=== PATIENT | male | born 1970 | race Caucasian/White ===

== ENCOUNTER 2016-11-25 17:35 | Emergency (ER) | payer OTHER ==
[~2016-11-25] VITALS: Ht 177.8 cm; Wt 88.5 kg
[2016-11-25 17:43] VITALS: BP 126/86
== END 2016-11-25 18:50 | disposition admitted as inpatient to this hospital (09) ==
LOC: ERH 17:35
DX: R07.9 Chest pain, unspecified (principal)
CPT/HCPCS: 80307; 93005; 93010; 99281

== ENCOUNTER 2017-01-04 12:29 | Emergency (ER) | payer OTHER ==
[~2017-01-04] VITALS: Ht 177.8 cm; Wt 88.5 kg
--- NOTE | 2017-01-04 15:52 | ED UPPER/LOWER EXTREMITY COMPL ---
History of Present Illness General Chief Complaint: Animal/Insect Bite Stated Complaint: DOG BITE Source: patient Exam Limitations: no limitations Vital Signs & Intake/Output Vital Signs & Intake/Output Vital Signs Date Time Temp Pulse Resp B/P Pulse O2 O2 Flow FiO2 Ox Delivery Rate 01/04 1846 97.8 75 18 116/72 98 Room Air 01/04 1621 98.7 82 18 112/71 97 Room Air 01/04 1237 98.5 93 20 142/96 98 Room Air Allergies Coded Allergies: levofloxacin (From [facility]) (HANDS AND FACE GOT VERY RED 01/04/17) Reconcile Medications Clindamycin HCl (Cleocin HCl) 300 MG CAPSULE 1 CAP PO TID CELLULITIS Clonazepam (Klonopin) 2 MG TABLET 1 TAB PO PRN ANXIETY (Reported) Naproxen (Naprosyn) 500 MG TABLET 1 TAB PO BID PRN PAIN/INFLAMMATION Tylenol With Codeine (Tylenol With Codeine #3 Tablet) 300 MG-30 MG TABLET 1 TAB PO PRN PAIN (Reported) Triage Note: PT TO ED C/O DOG BITE TO RIGHT HAND. PT STATES DOG IS UP TO DATE ON SHOTS, WAS A FRIENDS DOG. SUSTAINED BITE LAST NIGHT. RIGHT HAND PINK, WARM TO TOUCH AND BITES ARE OOZING. PT UNSURE OF LAST TETANUS SHOT. Triage Nurses Notes Reviewed? yes Onset: Gradual Duration: day(s): (1) Timing: no prior history Severity: moderate Severity Numbers: 8 Pain/Injury Location: Right: Hand. Method of Injury: dog bite Modifying Factors: Improves With: immobilization. Worsens With: movement. HPI: Patient is a 46-year-old male presenting to the emergency Department chief complaint of dog bite to the right hand that happened last night around 10 PM. He noticed increasing pain, swelling and redness today so decided to come in for evaluation. Tactile fevers and chills. Denies any nausea vomiting. Dog is up- to-date with immunizations. Patient unsure of tetanus immunization. Has been taking Tylenol with minimal relief. Movement makes it worse. Denies numbness or tingling. (MARY PAN,SONAM) Past History Travel History Traveled to [place] past 21 day No Medical History Any Pertinent Medical History? see below for history Cardiovascular: hypertension Endocrine: BORDERLINE DM Surgical History Surgical History: non-contributory Psychosocial History What is your primary language Syriac Tobacco Use: Current Daily Use Daily Tobacco Use Amount/Type: => 5 Cigarettes daily ETOH Use: occasional use Illicit Drug Use: denies illicit drug use Family History Hx Contributory? No (SONAM AMBRIZ) Review of Systems Review of Systems Constitutional: Reports: chills, fever. Comments Review of systems: See HPI, All other systems negative. Constitutional, no weight loss HEENT: No visual changes no sore throat no congestion Cardiovascular: No chest pain ,palpitation Skin, no jaundice no rashes Respiratory: No dyspnea cough sputum or hemoptysis GI: No nausea no vomiting Muscle skeletal: no back pain, no neck pain, Neurologic: No numbness no confusion Psych: No stress anxiety or depression,. Heme/endocrine: No bruising no bleeding no polyuria or polydipsia Immunology: No splenectomy or history of AIDS (SONAM AMBRIZ) Physical Exam Physical Exam General Appearance: well developed/nourished, no apparent distress, alert, awake , comfortable Comments: Well-developed well-nourished person in no acute distress HEENT:Pupils equally round and reactive to light and accommodation. Nose is atraumatic. Neck :normal inspection Back: Nontender Cardiovascular: Regular rate and rhythms no murmurs rubs or gallops, normal JVP Respiratory: Chest nontender. No respiratory distress.breath sounds clear to auscultation bilaterally Extremity: Moderate edema noted of the dorsum of the right hand and right wrist area. Limited range of motion of the right hand secondary to pain and swelling. Radial pulses are 2+ bilaterally. Neuro: Alert oriented x3, motor sensory normal, Skin: Very warm to palpation on the dorsum of the right hand, several puncture wounds noted on the dorsum of the right hand with surrounding erythema. Moderate edema. Area of erythema is approximately 8-10 cm extending from the dorsum of the right hand up past the wrist. Psych: Mood and affect is normal, memory and judgment is normal. (SONAM AMBRIZ) Progress Differential Diagnosis: cellulitis, contusion, dislocation, sprain, tendon injury, osteoarthritis, necrotizing fasciitis Plan of Care: Orders Procedure Date/time Status Regular Diet 01/[address] in observation 01/04 1727 Active Vital Signs 01/04 1727 Active Code Status 01/04 172 Active BLOOD CULTURE 01/04 1550 Active WESTERGREN SED RATE 02/13 1550 Complete COMPREHENSIVE METABOLIC PANEL 01/04 1550 Complete CBC WITHOUT DIFFERENTIAL 01/04 1550 Complete Current Medications Sig/Odette Start time Last Medication Dose Stop Time Status Admin Ampicillin Sodium/ 3,000 MG ONCE ONE 01/04 2200 AC Sulbactam Sodium 01/04 2229 (Unasyn) Sodium Chloride 100 ML (Normal Saline 0.9%) Laboratory Tests 01/04/17 1555: Anion Gap 13, Estimated GFR > 60, BUN/Creatinine Ratio 15.0, Glucose 121 H, Calcium 9.4, Total Bilirubin 1.0, AST 22, ALT 32, Alkaline Phosphatase 74, Total Protein 6.9, Albumin 3.9, Globulin 3.0, Albumin/Globulin Ratio 1.3, CBC w Diff NO MAN DIFF REQ, RBC 5.02, MCV 84.9, MCH 29.2, RDW 13.8, MPV 8.8, Gran % 71.2, Lymphocytes % 21.3, Monocytes % 5.5, Eosinophils % 1.7, Basophils % 0.3, Absolute Granulocytes 6.6 H, Absolute Lymphocytes 2.0, Absolute Monocytes 0.5, Absolute Eosinophils 0.2, Absolute Basophils 0, PUBS MCHC 34.4, ESR Westergren 10 Microbiology 01/04 1615 BLOOD: Blood Culture - RECD 01/04 1555 BLOOD: Blood Culture - RECD Diagnostic Imaging: Viewed by Me: Radiology Read. Discussed w/RAD: Radiology Read. Radiology Impression: PATIENT: JOSE BROWN PRESENT AGE: 46 PATIENT ACCOUNT NO: [id number] : 69 LOCATION: [facility] ORDERING PHYSICIAN: SONAM PAN SERVICE DATE: 01/04/17 EXAM TYPE: RAD - XRY-HAND, RIGHT EXAMINATION: XR HAND, RIGHT CLINICAL INFORMATION: 46-year-old male patient. Status post dog bite. COMPARISON: None TECHNIQUE: AP, lateral, and oblique views of the right hand. FINDINGS: There is considerable soft tissue swelling involving the dorsum of the right hand and distal forearm. Air is contained within the soft tissues at the presumed site of injury. Cellulitis may be present. There is no evidence of fracture, dislocation, or osteomyelitis/ septic arthritis. The joints are normal. The wrist is normal. IMPRESSION: Considerable soft tissue swelling with subcutaneous emphysema. Cellulitis is suspected. Hand-Off Endorsed To: CLAU MD,CATHY Endorsed Time: 1748 Pending: other Comments: 01/04/2017 3:59:18 PM patient has extensive dog bite with surrounding cellulitis to the right hand. Patient will have blood cultures, CBC, CMP drawn. Patient also fractured a rule out. I think fasciitis or subcutaneous emphysema. IV fluids and IV antibiotics initiated. 01/04/2017 4:46:52 PM patient feeling much improved after IV Toradol, IV Unasyn. The redness seems to have subsided slightly. Still warm and edematous. X-ray shows subcutaneous emphysema. No elevation in white blood cell come. Patient will be admitted for observation for IV antibiotics. 01/04/2017 5:45:31 PM patient does not currently have insurance. She decided to present for this patient would be to keep him in the emergency department until 10 PM for a second dose of IV Unasyn. He will then be discharged on by mouth clindamycin and follow up if symptoms worsen. Patient okay with this plan. Symptoms seem to be improving after first dose of Unasyn. Patient's prescriptions have arty been called over to the pharmacy. (SONAM AMBRIZ) Hand-Off Endorsed To: MONSTER ABBOTT MD Endorsed Time: 190 Pending: other (REPEAT ABX) (CATHY OLGUIN MD) Departure Departure Condition: Stable Clinical Impression Primary Impression: Cellulitis Qualifiers: Site of cellulitis: extremity Site of cellulitis of extremity: upper extremity Laterality: right Qualified Code: L03.113 - Cellulitis of right upper limb Referrals: PATIENT HAS NO PRIMARY CARE DR (PCP/Family) Additional Instructions: Return if he notes any increased redness swelling pain or fevers. Take clindamycin as prescribed. Elevate the leg as much as possible. Take naproxen as prescribed out with pain and swelling. Departure Forms: Customer Survey General Discharge Information Prescriptions: Current Visit Scripts Naproxen (Naprosyn) 1 TAB PO BID PRN PAIN/INFLAMMATION #20 TAB Clindamycin HCl (Cleocin HCl) 1 CAP PO TID #30 CAP (SONAM AMBRIZ) PA/ACQUISITION MARKETING COORDINATOR Co-Sign Statement Statement: ED Attending supervision documentation- [X] I saw and evaluated the patient. I have also reviewed all the pertinent lab results and diagnostic results. I agree with the findings and the plan of care as documented in the PA's/ACQUISITION MARKETING COORDINATOR's documentation. [X] I have reviewed the ED Record and agree with the PA's/ACQUISITION MARKETING COORDINATOR's documentation. [] Additions or exceptions (if any) to the PAs/ACQUISITION MARKETING COORDINATOR's note and plan are summarized below: [] (CLAU SANTANA,CATHY) Departure Disposition: HOME OR SELF CARE (SCAR SANTANA,MONSTER Chang)
[2017-01-04 16:09] LABS: ABSOLUTE BASOPHIL COUNT 0 /CUMM (0.0-0.2); ABSOLUTE EOSINOPHIL COUNT 0.2 /CUMM (0.0-0.7); ABSOLUTE GRANULOCYTE CT 6.6 /CUMM (1.4-6.5); ABSOLUTE MONOCYTE COUNT 0.5 /CUMM (0.10-0.60); BASOPHIL % 0.3 % (0.0-2.0); EOSINOPHIL % 1.7 % (0-5); GRANULOCYTE % 71.2 % (42.2-75.2); HEMATOCRIT 42.6 % (42-52); MEAN CORPUSCULAR HGB 29.2 PG (27.0-31.0); MEAN CORPUSCULAR HGB CONC 34.4 G/DL (33.0-37.0); MEAN CORPUSCULAR VOLUME 84.9 FL (80.0-94.0); MEAN PLATELET VOLUME 8.8 FL (7.4-10.4); PLATELET COUNT 224 /CUMM (130-400); RBC DISTRIBUTION WIDTH 13.8 % (11.5-14.5); RED BLOOD CELL CT 5.02 /CUMM (4.70-6.10); WHITE BLOOD CELL COUNT 9.3 /CUMM (4.8-10.8)
[2017-01-04] MEDS ORDERED: KLONOPIN2 M1 PO (16:18)
[2017-01-04] MEDS ORDERED: TYLENOL WITH C1 EACH PO (16:19)
--- NOTE | 2017-01-04 16:26 | RADIOLOGY REPORT ---
EXAMINATION: XR HAND, RIGHT CLINICAL INFORMATION: 46-year-old male patient. Status post dog bite. COMPARISON: None TECHNIQUE: AP, lateral, and oblique views of the right hand. FINDINGS: There is considerable soft tissue swelling involving the dorsum of the right hand and distal forearm. Air is contained within the soft tissues at the presumed site of injury. Cellulitis may be present. There is no evidence of fracture, dislocation, or osteomyelitis/septic arthritis. The joints are normal. The wrist is normal. IMPRESSION: Considerable soft tissue swelling with subcutaneous emphysema. Cellulitis is suspected.
[2017-01-04] MEDS ORDERED: CLEOCIN HCL300 M1 PO (17:45)
[2017-01-04] MEDS ORDERED: NAPROSYN500 M1 PO (17:45)
[2017-01-04 23:16] VITALS: BP 118/71
== END 2017-01-04 23:17 ==
LOC: ERH 12:29
PROVIDERS: Physician Assistant
DX: L03.113 Cellulitis of right upper limb (principal); W54.0XXA Bitten by dog, initial encounter
CPT/HCPCS: 73130-RT; 87040; 90471; 90714; 96374; 96375; 96376; J1885